=== PATIENT | female | born 1960 | race Caucasian/White ===

== ENCOUNTER 2019-08-27 07:07 | Inpatient (IN) | payer BC, MEDICAID, OTHER ==
[~2019-08-27] VITALS: Ht 165.1 cm; Wt 92.2 kg
[2019-08-27] MEDS ORDERED: ESCI20TA10 PO (07:26)
[2019-08-27] MEDS ORDERED: ATEN50TA41 PO (07:26)
[2019-08-27] MEDS ORDERED: QUET50TA PO (07:26)
--- NOTE | 2019-08-27 07:35 | NUR ---
PT BIB [facility] AFTER INGESTING 365 PILLS OF 81MG ASA AND 40-50 PILLS OF IBUPROFEN, UNKNOWN STRENGTH. PT STATES SHE DOES NOT WANT TO LIVE, IS HAVING DIFFICULTIES WITH LEAVING HER AND TAKING THEIR PET. PT HAS HAD NO EMESIS SINCE INCIDENT. UPON ARRIVAL PT URINATED WITHOUT URINE CUP- PT IS AWARE URINE SAMPLE IS NEEDED AND STATES SHE WILL PROVIDE ONE NEXT TIME SHE NEEDS TO VOID. PT CHANGED INTO GOWN AND 1 BAG OF BELONGINGS PLACED IN SECURE LOCKER. ROOM SECURED. SITTER AT BEDSIDE. PT PROVIDED WITH A WARM BLANKET AND CUP OF WATER. LAB AT BEDSIDE NOW. FOOD ORDERED FOR PT.
[2019-08-27 07:47] LABS: MEAN CORPUSCULAR HEMOGLOBIN 30.5 pg (27.0-34.8); MEAN CORPUSCULAR HGB CONC 33.7 g/dL (32.4-35.8); MEAN CORPUSCULAR VOLUME 90.5 fL (80-100); MEAN PLATELET VOLUME 8.8 fL (7.4-10.4); PLATELET COUNT 247 x10^3/uL (130-400); RED BLOOD COUNT 5.24 x10^6/uL (3.82-5.3); RED CELL DISTRIBUTION WIDTH 13.1 % (9.6-15.2)
[2019-08-27 07:59] LABS: ALBUMIN 4.4 g/dL (3.4-5.0); ANION GAP 4 mmol/L (5-15); CALCIUM 8.7 mg/dL (8.5-10.1); CHLORIDE 122 mmol/L (98-107)
[2019-08-27 08:01] LABS: ALANINE AMINOTRANSFERASE 33 U/L (12-78); ALKALINE PHOSPHATASE 68 U/L (45-117); BILIRUBIN,TOTAL 1.5 mg/dL (0.2-1.0); CREATININE 0.92 mg/dL (0.55-1.02); TOTAL PROTEIN 7.7 g/dL (6.4-8.2)
--- NOTE | 2019-08-27 08:06 | NUR ---
PT PROVIDED WITH BREAKFAST TRAY. URINE COLLECTED. PT RESTING ON GURNEY. NADN. DENIES NEEDS. ROOM SECURE. SITTER AT BEDSIDE.
[2019-08-27 08:07] LABS: SALICYLATE LEVEL 37.3 mg/dL (2.8-20.0)
[2019-08-27 08:14] LABS: HCG UR SG 1.007 (1.003-1.030); MICROSCOPIC NOT IND
[2019-08-27 08:15] LABS: BASOPHILS # (AUTO) 0.06 x10^3/uL (0-0.1); BASOPHILS % (AUTO) 0 % (0-1); EOSINOPHILS # (AUTO) 0.28 x10^3/uL (0-0.4); EOSINOPHILS % (AUTO) 2 % (1-7); LYMPHOCYTES # (AUTO) 2.01 x10^3/uL (1-3.4); LYMPHOCYTES % (AUTO) 14 % (22-44); MD SCAN; MONOCYTES # (AUTO) 0.52 x10^3/uL (0.2-0.8); MONOCYTES % (AUTO) 4 % (2-9); NEUTROPHILS % (AUTO) 81 % (42-75)
[2019-08-27 08:16] LABS: CULTURE INDICATED? NO
[2019-08-27 08:26] LABS: AMPHETAMINE SCREEN, URINE Negative (Negative); BARBITURATE SCREEN, URINE Negative (Negative); BENZODIAZEPINE SCREEN, URINE Negative (Negative); CANNABINOID SCREEN, URINE Negative (Negative); COCAINE SCREEN, URINE Negative (Negative); METHADONE SCREEN, URINE Negative (Negative); OPIATE SCREEN, URINE Negative (Negative)
[2019-08-27] MEDS ORDERED: SODIUM BICARBONATE 1 MEQ/ML, 50ML VIAL IVPush STA (08:39)
--- NOTE | 2019-08-27 08:45 | NUR ---
PT AMBULATORY WITH STEADY GAIT TO RESTROOM AND BACK TO [facility]. RESTING ON [place]. CONNECTED TO MONITOR. AWARE OF POC. VSS. SITTER IN HALLWAY.
--- NOTE | 2019-08-27 08:50 | NUR ---
PT MEDICATED PER EMAR. RESTING ON GURNEY. CONNECTED TO MONITOR. NADN. STUART DRINKING PO CHARCOAL. SITTER IN HALLWAY.
[2019-08-27] MEDS ORDERED: SODIUM BICARB 8.4%,50ML SYR. 150 MEQ in DEXTROSE 5% 1,000 ML IV ONE (09:00)
[2019-08-27] MEDS ORDERED: CHARCOAL/AQUEOUS 25 GM/120 ML PO ONE (09:00)
--- NOTE | 2019-08-27 09:25 | NUR ---
EKG BEING PERFORMED NOW.
--- NOTE | 2019-08-27 09:32 | NUR ---
REPORT GIVEN TO VIRAL BUCKNER IN CCU.
[2019-08-27] MEDS ORDERED: ACETAMINOPHEN 325 MG TABLET PO PRN (10:00)
[2019-08-27] MEDS ORDERED: ONDANSETRON 2MG/ML, 2ML IVPush PRN (10:00)
[2019-08-27] MEDS ORDERED: LABETALOL 5 MG/ML SYR. (IV ONLY) IVPush PRN (10:00)
[2019-08-27 10:30] VITALS: BP 114/57
[2019-08-27 11:53] LABS: MICROSCOPIC NOT IND
[2019-08-27] MEDS ORDERED: OXYcodone 5 MG/5 ML ORAL.SOL UDC PO PRN ×2 (12:00→12:30)
[2019-08-27 12:11] LABS: FIO2 ROOM AIR %
[2019-08-27 12:24] LABS: CALCIUM 8.3 mg/dL (8.5-10.1); CREATININE 1.07 mg/dL (0.55-1.02)
[2019-08-27] MEDS ORDERED: OXYcodone IR 5MG TABLET ONE (12:24)
[2019-08-27 12:34] LABS: FREE T4 (FREE THYROXINE) 1.56 ng/dL (0.76-1.46)
[2019-08-27 12:36] LABS: ANION GAP 5 mmol/L (5-15); CHLORIDE 117 mmol/L (98-107)
[2019-08-27 12:37] LABS: SALICYLATE LEVEL 38.3 mg/dL (2.8-20.0)
[2019-08-27] MEDS: OXYcodone IR 5MG TABLET PO PRN ×2 (12:38→16:34)
[2019-08-27] MEDS ORDERED: POTASSIUM CHLORIDE 20 MEQ TAB.ER.PRT PO ONE (13:00)
[2019-08-27 13:49] LABS: MICROSCOPIC NOT IND
[2019-08-27 14:10] LABS: INTERNATIONAL NORMALIZED RATIO 1.01 (0.93-1.1); PROTHROMBIN TIME 10.6 Seconds (9.6-11.5)
[2019-08-27 15:00] LABS: MICROSCOPIC NOT IND
[2019-08-27] MEDS: SODIUM BICARBONATE 8.4% 150 MEQ in DEXTROSE 5% 1,000 ML IV SCH ×2 (16:03→23:41)
[2019-08-27 16:10] LABS: ANION GAP 3 mmol/L (5-15); CALCIUM 8.4 mg/dL (8.5-10.1); CHLORIDE 116 mmol/L (98-107); CREATININE 1.01 mg/dL (0.55-1.02)
[2019-08-27 16:15] LABS: SALICYLATE LEVEL 34.5 mg/dL (2.8-20.0)
[2019-08-27 16:59] LABS: MICROSCOPIC INDICATED
[2019-08-27] MEDS: LORazepam 2 MG/ML, 1ML IVPush PRN (17:56)
[2019-08-27 20:15] LABS: ANION GAP 4 mmol/L (5-15); CHLORIDE 114 mmol/L (98-107); CREATININE 1.04 mg/dL (0.55-1.02)
[2019-08-27 20:16] LABS: SALICYLATE LEVEL 30.4 mg/dL (2.8-20.0)
[2019-08-27 20:54] LABS: MICROSCOPIC INDICATED
[2019-08-28 00:33] LABS: ANION GAP 4 mmol/L (5-15); CALCIUM 7.9 mg/dL (8.5-10.1); CHLORIDE 111 mmol/L (98-107); CREATININE 0.99 mg/dL (0.55-1.02); SALICYLATE LEVEL 26.2 mg/dL (2.8-20.0)
[2019-08-28 04:22] LABS: BASOPHILS # (AUTO) 0.06 x10^3/uL (0-0.1); BASOPHILS % (AUTO) 1 % (0-1); EOSINOPHILS # (AUTO) 0.25 x10^3/uL (0-0.4); EOSINOPHILS % (AUTO) 3 % (1-7); LYMPHOCYTES # (AUTO) 2.46 x10^3/uL (1-3.4); LYMPHOCYTES % (AUTO) 27 % (22-44); MD NO; MEAN CORPUSCULAR HEMOGLOBIN 30.6 pg (27.0-34.8); MEAN CORPUSCULAR HGB CONC 33.2 g/dL (32.4-35.8); MEAN CORPUSCULAR VOLUME 92.2 fL (80-100); MEAN PLATELET VOLUME 9.4 fL (7.4-10.4); MONOCYTES # (AUTO) 0.55 x10^3/uL (0.2-0.8); MONOCYTES % (AUTO) 6 % (2-9); NEUTROPHILS # (AUTO) 5.95 x10^3/uL (1.8-6.8); NEUTROPHILS % (AUTO) 64 % (42-75); PLATELET COUNT 194 x10^3/uL (130-400); RED BLOOD COUNT 4.65 x10^6/uL (3.82-5.3); RED CELL DISTRIBUTION WIDTH 13.1 % (9.6-15.2)
[2019-08-28 04:35] LABS: ANION GAP 4 mmol/L (5-15); CHLORIDE 111 mmol/L (98-107)
[2019-08-28 04:37] LABS: CREATININE 0.97 mg/dL (0.55-1.02)
[2019-08-28 04:49] LABS: SALICYLATE LEVEL 23.4 mg/dL (2.8-20.0)
[2019-08-28] MEDS ORDERED: POTASSIUM CHLORIDE 20 MEQ TAB.ER.PRT PO ONE (07:30)
[2019-08-28] MEDS: SODIUM BICARBONATE 8.4% 150 MEQ in DEXTROSE 5% 1,000 ML IV SCH (07:34)
[2019-08-28] MEDS: PANTOPRAZOLE 40 MG IV IVPush SCH (07:34)
[2019-08-28] MEDS: OXYcodone IR 5MG TABLET PO PRN (07:49)
[2019-08-28 07:53] LABS: ANION GAP 4 mmol/L (5-15); CALCIUM 8.1 mg/dL (8.5-10.1); CHLORIDE 111 mmol/L (98-107); CREATININE 0.92 mg/dL (0.55-1.02); SALICYLATE LEVEL 16.6 mg/dL (2.8-20.0)
[2019-08-28] MEDS: SODIUM CHLORIDE 0.9% 1,000 ML IV SCH ×2 (08:46→19:07)
[2019-08-28] MEDS ORDERED: FLU VACC QS2019-20 36MOS UP/PF 0.5 ML IM ONE (09:00)
[2019-08-28 11:58] VITALS: BP 121/74
[2019-08-28] MEDS: LORazepam 2 MG/ML, 1ML IVPush PRN ×3 (12:03→22:43)
[2019-08-28 15:18] VITALS: BP 143/79
[2019-08-28 18:52] VITALS: BP 127/74
[2019-08-29 00:35] VITALS: BP 135/72
[2019-08-29] MEDS: LORazepam 2 MG/ML, 1ML IVPush PRN ×3 (03:20→14:00)
[2019-08-29] MEDS: SODIUM CHLORIDE 0.9% 1,000 ML IV SCH ×2 (06:00→16:02)
[2019-08-29] MEDS: PANTOPRAZOLE 40 MG IV IVPush SCH (08:14)
[2019-08-29] MEDS ORDERED: HEPARIN 5,000 UNITS/ML, 1ML SQ SCH (09:00)
[2019-08-29 09:22] VITALS: BP 137/77
[2019-08-29] MEDS: OXYcodone IR 5MG TABLET PO PRN (10:08)
[2019-08-29 15:58] VITALS: BP 146/56
[2019-08-29] MEDS ORDERED: PANT40TA5 PO (16:06)
[2019-08-29] MEDS ORDERED: POTA20TA6 PO (16:06)
[2019-08-30] MEDS ORDERED: PANTOPROZOLE 40MG TABLET PO SCH (06:00)
[2019-08-30] MEDS ORDERED: POTASSIUM CHLORIDE 20 MEQ TAB.ER.PRT PO SCH (08:00)
== END 2019-08-29 17:15 | DRG 812 ==
LOC: ED 08:50 → CCU 09:45 → 4WST 08-28 11:49
PROVIDERS: ADMIT Family Medicine; ATTEND Internal Medicine
DX: T39.312A Poisoning by propionic acid derivatives, intentional self-harm, initial encounter (principal); N17.0 Acute kidney failure with tubular necrosis; E87.4 Mixed disorder of acid-base balance; D72.829 Elevated white blood cell count, unspecified; E87.6 Hypokalemia; S60.812A Abrasion of left wrist, initial encounter; F12.90 Cannabis use, unspecified, uncomplicated; F17.200 Nicotine dependence, unspecified, uncomplicated; F32.9 Major depressive disorder, single episode, unspecified; G47.00 Insomnia, unspecified; I10 Essential (primary) hypertension; Z63.0 Problems in relationship with spouse or partner; X78.9XXA Intentional self-harm by unspecified sharp object, initial encounter; Y93.89 Activity, other specified; Y92.89 Other specified places as the place of occurrence of the external cause; Y99.8 Other external cause status
CPT/HCPCS: 36415; 36600; 71045; 80048; 80053; 80307; 81001; 81003; 81025; 82803; 83735; 84100; 84439; 84443; 85025; 85610; 87081; 90686; 93005; 96374; 96375; 99291; G0378; J1644; J7070; C9113; J2060; J7030

== ENCOUNTER 2020-04-04 06:21 | Emergency (ER) | payer OTHER, MEDICAID ==
[~2020-04-04] VITALS: Ht 165.1 cm; Wt 92.0 kg
[~2020-04-04 06:21] MED LIST: ATEN50TA41 PO; ESCI20TA10 PO; PANT40TA5 PO; POTA20TA6 PO; QUET50TA PO
--- NOTE | 2020-04-04 06:36 | NUR ---
PT ABLE TO STAND TO CHANGE WITH HELP OF , PT CLUNG TO TO SIT DOWN IN BED. PT ON THE VERGE OF TEARS, MOANING IN DISTRESS, STOPS TO ANSWER QUESTIONS IN A QUIET, CALM VOICE. ERP TO BEDSIDE.
[2020-04-04] MEDS ORDERED: HYDROmorphone 1 MG/ML, 1ML INJ IVPush PRN (07:00)
[2020-04-04] MEDS ORDERED: SODIUM CHLORIDE FLUSH 10ML SYR IVF ONE (07:00)
--- NOTE | 2020-04-04 07:01 | NUR ---
REPORT GIVEN TO VIRAL BESS; TO ASSUME FULL CARE.
[2020-04-04 07:09] LABS: BASOPHILS # (AUTO) 0.02 x10^3/uL (0-0.1); BASOPHILS % (AUTO) 0 % (0-1); EOSINOPHILS % (AUTO) 1 % (1-7); LYMPHOCYTES # (AUTO) 0.65 x10^3/uL (1-3.4); LYMPHOCYTES % (AUTO) 6 % (22-44); MD NO; MEAN CORPUSCULAR HEMOGLOBIN 27.3 pg (27.0-34.8); MEAN CORPUSCULAR HGB CONC 33.1 g/dL (32.4-35.8); MEAN CORPUSCULAR VOLUME 82.4 fL (80-100); MEAN PLATELET VOLUME 8.1 fL (7.4-10.4); MONOCYTES # (AUTO) 0.36 x10^3/uL (0.2-0.8); MONOCYTES % (AUTO) 3 % (2-9); NEUTROPHILS # (AUTO) 9.99 x10^3/uL (1.8-6.8); NEUTROPHILS % (AUTO) 90 % (42-75); PLATELET COUNT 254 x10^3/uL (130-400); RED BLOOD COUNT 3.88 x10^6/uL (3.82-5.3); RED CELL DISTRIBUTION WIDTH 15.7 % (9.6-15.2)
[2020-04-04] MEDS ORDERED: HYDROmorphone 1 MG/ML, 1ML INJ ONE (07:09)
[2020-04-04 07:20] LABS: ALBUMIN 2.6 g/dL (3.4-5.0); ANION GAP 8 mmol/L (5-15); CALCIUM 8.7 mg/dL (8.5-10.1); CHLORIDE 103 mmol/L (98-107); CREATININE 0.94 mg/dL (0.55-1.02)
--- NOTE | 2020-04-04 07:24 | NUR ---
PIV INITIATED, PT MEDICATED PER DEC. PT NOW TO MRI
[2020-04-04] MEDS ORDERED: KETOROLAC 30 MG/1 ML IVPush ONE (08:00)
[2020-04-04] MEDS ORDERED: METHOCARBAMOL 1,000 MG in DEXTROSE 5% 100 ML IV ONE (08:00)
[2020-04-04] MEDS ORDERED: KETOROLAC 30 MG/1 ML ONE (08:03)
--- NOTE | 2020-04-04 08:30 | NUR ---
PT WITH LOWER BP 95/58, INITIALLY 130 SBP IN TRIAGE. PT HAD RECIEVED IV DILUADED ERMD NOTIFIED, NO ORDERS RECIEVED AT THIS TIME, WILL CONTINUE TO MONITOR
[2020-04-04 08:56] LABS: MICROSCOPIC INDICATED
[2020-04-04 09:05] VITALS: BP 98/44
== END 2020-04-04 11:16 | disposition home or self-care (01) ==
LOC: ED 06:54
DX: M51.36 Other intervertebral disc degeneration, lumbar region (principal); M47.816 Spondylosis without myelopathy or radiculopathy, lumbar region; M43.16 Spondylolisthesis, lumbar region; N30.00 Acute cystitis without hematuria; M48.07 Spinal stenosis, lumbosacral region; I10 Essential (primary) hypertension
CPT/HCPCS: 36415; 72148; 80048; 81001; 82040; 85025; 87086; 96365; 96375; 99284; J1170; J1885; J2800; 96361

== ENCOUNTER 2020-06-19 12:00 | Inpatient (IN) | payer OTHER, MEDICAID ==
[~2020-06-19] VITALS: Ht 170.2 cm; Wt 69.4 kg
[~2020-06-19 12:00] MED LIST changes: -PANT40TA5 PO; +PANT40TA6 PO
--- NOTE | 2020-06-19 12:14 | NUR ---
[place]. report received from [facility]. pt's neighbor's heard her screaming. per connie, pt is failure to thrive. connie found her on bed. pt lives herself with 2 dogs. pt aox2. unknown baseline. pt has big scar on the middle chest and neighbor stated"she has a heart attack about 5 weeks ago." pt denies any physical complaints. resps even and unlabored. bp/spo2 monitors in place. call light within reach. pt has small scars on bilateral arms and legs. connie stated"probably from two dogs because these dogs are aggressive when we got there."
--- NOTE | 2020-06-19 12:26 | NUR ---
pt's number [phone](per connie)
[2020-06-19] MEDS ORDERED: LORazepam 2 MG/ML, 1ML IVPush ONE ×3 (12:30→20:00)
[2020-06-19] MEDS ORDERED: SODIUM CHLORIDE FLUSH 10ML SYR IVF ONE (12:30)
--- NOTE | 2020-06-19 12:31 | NUR ---
REPORT FROM VIRAL MORIN. LAB AT BEDSIDE FOR DRAW. NAD NOTED AT THIS TIME.
[2020-06-19 12:46] LABS: BASOPHILS # (AUTO) 0.12 x10^3/uL (0-0.1); BASOPHILS % (AUTO) 2 % (0-1); EOSINOPHILS # (AUTO) 0.05 x10^3/uL (0-0.4); EOSINOPHILS % (AUTO) 1 % (1-7); LYMPHOCYTES # (AUTO) 1.77 x10^3/uL (1-3.4); LYMPHOCYTES % (AUTO) 22 % (22-44); MD NO; MEAN CORPUSCULAR HEMOGLOBIN 27.1 pg (27.0-34.8); MEAN CORPUSCULAR VOLUME 84.7 fL (80-100); MEAN PLATELET VOLUME 8.5 fL (7.4-10.4); MONOCYTES % (AUTO) 6 % (2-9); NEUTROPHILS % (AUTO) 70 % (42-75); PLATELET COUNT 351 x10^3/uL (130-400); RED BLOOD COUNT 4.84 x10^6/uL (3.82-5.3); RED CELL DISTRIBUTION WIDTH 17.9 % (9.6-15.2)
--- NOTE | 2020-06-19 12:52 | NUR ---
TASK RN NOTE: PT RETURNED FROM IMAGING. EMT IN TO ASSESS ABILITY TO AMBULATE. MINI CATH READY AT BEDSIDE.
[2020-06-19 12:53] LABS: ALBUMIN 3.4 g/dL (3.4-5.0); ANION GAP 11 mmol/L (5-15); CALCIUM 9.7 mg/dL (8.5-10.1); CHLORIDE 110 mmol/L (98-107)
--- NOTE | 2020-06-19 12:55 | NUR ---
ATTEMPED TO AMBULATE. PT COULD NOT SIT UPRIGHT AND BE STEADY.
[2020-06-19 12:58] LABS: ALANINE AMINOTRANSFERASE 18 U/L (12-78); ALKALINE PHOSPHATASE 106 U/L (45-117); BILIRUBIN,TOTAL 0.8 mg/dL (0.2-1.0); CREATININE 0.66 mg/dL (0.55-1.02); TOTAL PROTEIN 8.1 g/dL (6.4-8.2)
[2020-06-19 13:02] LABS: INTERNATIONAL NORMALIZED RATIO 1.66 (0.93-1.1)
[2020-06-19 13:03] LABS: PROTHROMBIN TIME 17.2 Seconds (9.6-11.5)
--- NOTE | 2020-06-19 13:08 | NUR ---
TASK RN NOTE: PT TOLERATED MINI CATH WELL. UA WALKED TO LAB.
[2020-06-19] MEDS ORDERED: LORazepam 2 MG/ML, 1ML ONE ×2 (13:18→18:56)
--- NOTE | 2020-06-19 13:28 | NUR ---
PIV EST ON L HAND WITH NO COMPLICATIONS. PT MEDICATED PER EMAR. PT TOLERATED WELL.
[2020-06-19 13:31] LABS: AMPHETAMINE SCREEN, URINE Negative (Negative); BARBITURATE SCREEN, URINE Negative (Negative); BENZODIAZEPINE SCREEN, URINE Negative (Negative); CANNABINOID SCREEN, URINE Positive (Negative); COCAINE SCREEN, URINE Negative (Negative); METHADONE SCREEN, URINE Negative (Negative); OPIATE SCREEN, URINE Positive (Negative)
--- NOTE | 2020-06-19 14:10 | NUR ---
pt resting in [facility]. resps even and unlabored. bp/spo2 monitors in place. call light within reach. rails up x2.
--- NOTE | 2020-06-19 14:14 | NUR ---
insulation hoseman at bedside evaluating at this time.
--- NOTE | 2020-06-19 14:38 | NUR ---
pt removed piv herself. pt is confused and agitated. pt is hold per dividend deposit entry clerk. charge en notified.
--- NOTE | 2020-06-19 14:57 | NUR ---
REPORT RECIEVED FROM MIKEL STRATTON. ASSUMED CARE
--- NOTE | 2020-06-19 15:03 | NUR ---
report gave to paco lai.
--- NOTE | 2020-06-19 15:19 | NUR ---
PT RESTING IN [facility]. LIGHTS OFF. EXPLAINED TO THE PT THAT SHE CAN RELAX, ITS SAFE HERE, AND SHE CAN NAP IF SHE WANTS
[2020-06-19] MEDS ORDERED: QUETIAPINE 25MG TABLET ONE (15:21)
[2020-06-19] MEDS: QUETIAPINE 25MG TABLET PO SCH ×2 (15:30→23:44)
[2020-06-19] MEDS ORDERED: ZIPRASIDONE 20 MG INJ IM ONE ×2 (15:35→16:00)
--- NOTE | 2020-06-19 15:46 | NUR ---
PT CONTINOUSLY TRYING TO GET OUT OF BED. PT IS VERY UNSTEADY ON FEET. PT HAS BEEN MEDICATED WITH 20MG GEODON PER MD VERBAL ORDER
--- NOTE | 2020-06-19 16:07 | NUR ---
THROUGHPUT: AUDREY HOOVER FAXED REFERRAL PACKET TO [facility], [facility], [facility], [facility]. FAX CONFIRMATION RECEIVED
--- NOTE | 2020-06-19 16:44 | NUR ---
PT RESTING IN GURNEY. STILL CONTINUES TO HAVE SPORADIC MUSCLE MOVEMENTS. HOWEVER, IS NO LONGER TRYING TO GET OUT OF BED. VSS. SITTER IS OUTSIDE OF ROOM MONITORING PT
[2020-06-19 16:47] LABS: MICROSCOPIC NOT IND
--- NOTE | 2020-06-19 17:01 | NUR ---
Patient denied by [facility].
--- NOTE | 2020-06-19 17:14 | NUR ---
Patient accepted by Marcus from [facility]. Accepting doctor Dr. Boateng. RN from [facility] to call us an get report and at that time they will give us an ETA for transport.
--- NOTE | 2020-06-19 17:37 | NUR ---
TRHOUGHPUT: RECEIVED ACCEPTING MD AT [facility], ELIAN SIGNED, PACKET MADE, CALLED [facility] FOR AUTHORIZATION, CALLED ERIC KOHINOOR OPERATOR TIME AT 1830
--- NOTE | 2020-06-19 18:49 | NUR ---
BREAK RN: CLEAN LINNENS AND GOWN PLACED. PT SKIN FELT VERY HOT, RECTAL TEMP = 101.6, DR TAYLOR INFORMED
[2020-06-19] MEDS ORDERED: ACETAMINOPHEN 650 MG SUPP ONE (18:52)
[2020-06-19] MEDS ORDERED: ACETAMINOPHEN 325 MG TABLET PO ONE (19:00)
[2020-06-19] MEDS ORDERED: HYDROmorphone 2 MG/ML, 1ML IVPush PRN (19:00)
--- NOTE | 2020-06-19 20:21 | NUR ---
PT DENIED FROM [facility] BECAUSE PT IS UNABLE TO PERFORM ADLs. PT NEEDS 1 TO 1 MONITORING. PT WAS TAKEN TO RADIOLOGY AND A LUMBAR PUNCTURE WAS PERFORMED. PT WAS GIVEN 2MG ATIVAN PRIOR TO PROCEDURE AND PT WAS STILL RESTLESS DURING PROCEDURE. HOWEVER, RADIOLOGIST WAS ABLE TO PERFORM PROCEDURE AND COLLECTED THE CSF NEEDED. CSF WALKED TO LAB.
[2020-06-19 20:27] LABS: GLUCOSE, CSF 45 mg/dL (40-80); TOTAL PROTEIN,CSF 86 mg/dL (15-45)
--- NOTE | 2020-06-19 21:52 | NUR ---
PT RESTING IN [facility]. COVID SWAB PERFORMED
[2020-06-19] MEDS ORDERED: CEFTRIAXONE PMX 1GM/50ML 50 ML ONE (21:54)
[2020-06-19] MEDS ORDERED: CEFTRIAXONE PMX 1GM/50ML 50 ML IV SCH (22:00)
--- NOTE | 2020-06-19 22:14 | NUR ---
late note: this tech assisted with bedding and gown change, positioning pt in bed, and took rectal temp per RN
--- NOTE | 2020-06-19 22:19 | NUR ---
VIRAL GOODMAN COLLECTED COVID SAMPLE AND WALKED IT TO LAB
[2020-06-19] MEDS ORDERED: D5%-0.45NACL+KCL 20MEQ 1,000 ML IV SCH (22:38)
[2020-06-19] MEDS ORDERED: ENOXAPARIN 40 MG/0.4 ML SQ SCH (23:00)
[2020-06-19] MEDS ORDERED: LIDODERM 5% PATCH TD PRN (23:00)
[2020-06-19] MEDS ORDERED: MELATONIN 5 MG TABLET PO PRN (23:00)
[2020-06-19] MEDS ORDERED: ENALAPRILAT 1.25 MG/ML, 2ML IVPush PRN (23:00)
[2020-06-19] MEDS ORDERED: DOCUSATE 100 MG CAPSULE PO PRN (23:00)
[2020-06-19 23:12] VITALS: BP 117/76
[2020-06-19] MEDS: AZITHROMYCIN 500 MG in SODIUM CHLORIDE 0.9% 250 ML IV SCH (23:41)
[2020-06-20 01:04] VITALS: BP 108/63
[2020-06-20 06:00] LABS: BASOPHILS # (AUTO) 0.04 x10^3/uL (0-0.1); BASOPHILS % (AUTO) 1 % (0-1); EOSINOPHILS # (AUTO) 0.04 x10^3/uL (0-0.4); EOSINOPHILS % (AUTO) 1 % (1-7); LYMPHOCYTES # (AUTO) 1.82 x10^3/uL (1-3.4); LYMPHOCYTES % (AUTO) 29 % (22-44); MD NO; MEAN CORPUSCULAR HEMOGLOBIN 27.5 pg (27.0-34.8); MEAN CORPUSCULAR HGB CONC 32.3 g/dL (32.4-35.8); MEAN PLATELET VOLUME 8.7 fL (7.4-10.4); MONOCYTES # (AUTO) 0.53 x10^3/uL (0.2-0.8); MONOCYTES % (AUTO) 9 % (2-9); NEUTROPHILS # (AUTO) 3.87 x10^3/uL (1.8-6.8); NEUTROPHILS % (AUTO) 61 % (42-75); PLATELET COUNT 306 x10^3/uL (130-400); RED BLOOD COUNT 4.21 x10^6/uL (3.82-5.3); RED CELL DISTRIBUTION WIDTH 17.8 % (9.6-15.2)
[2020-06-20 06:08] LABS: ANION GAP 9 mmol/L (5-15); CALCIUM 9.6 mg/dL (8.5-10.1); CHLORIDE 115 mmol/L (98-107)
[2020-06-20 06:20] LABS: CREATININE 0.59 mg/dL (0.55-1.02)
[2020-06-20 06:57] VITALS: BP 137/82
[2020-06-20] MEDS: DEXAMETHASONE 4 MG/ML, 1ML IVPush SCH ×3 (08:00→20:34)
[2020-06-20 08:50] LABS: C-REACTIVE PROTEIN, QUANT 5.2 mg/dL (0.02-0.49)
[2020-06-20] MEDS: CHOLECALCIFEROL 5,000u TAB PO SCH (09:20)
[2020-06-20] MEDS: ZINC SULFATE 220 MG CAPSULE PO SCH (09:20)
[2020-06-20] MEDS: POTASSIUM CHLORIDE 20 MEQ TAB.ER.PRT PO SCH ×2 (09:20→16:01)
[2020-06-20] MEDS: QUETIAPINE 25MG TABLET PO SCH ×2 (09:20→20:34)
[2020-06-20] MEDS: ASCORBATE SODIUM 3,000 MG in SODIUM CHLORIDE 0.9% 250 ML IVPB SCH ×3 (09:20→21:25)
[2020-06-20 12:14] VITALS: BP 140/88
[2020-06-20] MEDS ORDERED: CEFTRIAXONE PMX 2GM/50ML 50 ML IV SCH (18:30)
[2020-06-20 20:24] VITALS: BP 141/81
[2020-06-20] MEDS: ENOXAPARIN 60 MG/0.6 ML SQ SCH (20:33)
[2020-06-20] MEDS: ACYCLOVIR 650 MG in SODIUM CHLORIDE 0.9% 100 ML IV SCH (20:33)
[2020-06-20] MEDS: MELATONIN 5 MG TABLET PO SCH (20:35)
[2020-06-20] MEDS: AZITHROMYCIN 500 MG in SODIUM CHLORIDE 0.9% 250 ML IV SCH (21:59)
[2020-06-21 00:01] VITALS: BP 104/71
[2020-06-21] MEDS: ACYCLOVIR 650 MG in SODIUM CHLORIDE 0.9% 100 ML IV SCH ×3 (02:27→22:14)
[2020-06-21] MEDS: DEXAMETHASONE 4 MG/ML, 1ML IVPush SCH ×4 (02:27→23:39)
[2020-06-21] MEDS: ASCORBATE SODIUM 3,000 MG in SODIUM CHLORIDE 0.9% 250 ML IVPB SCH ×3 (02:47→16:00)
[2020-06-21 06:19] LABS: ANION GAP 8 mmol/L (5-15); CALCIUM 9.1 mg/dL (8.5-10.1); CHLORIDE 113 mmol/L (98-107); CREATININE 0.51 mg/dL (0.55-1.02)
[2020-06-21 08:51] VITALS: BP 109/63
[2020-06-21] MEDS: ENOXAPARIN 60 MG/0.6 ML SQ SCH ×2 (08:57→22:12)
[2020-06-21] MEDS: QUETIAPINE 25MG TABLET PO SCH ×2 (08:57→22:17)
[2020-06-21] MEDS: ZINC SULFATE 220 MG CAPSULE PO SCH (08:57)
[2020-06-21] MEDS: POTASSIUM CHLORIDE 20 MEQ TAB.ER.PRT PO SCH (08:57)
[2020-06-21] MEDS: CHOLECALCIFEROL 5,000u TAB PO SCH (08:58)
[2020-06-21] MEDS ORDERED: ERTAPENEM 1 GM in SODIUM CHLORIDE 0.9% 50 ML IV ONE (11:00)
[2020-06-21] MEDS ORDERED: DAPTOMYCIN 600 MG in SODIUM CHLORIDE 0.9% 100 ML IV ONE (11:30)
[2020-06-21 12:47] VITALS: BP 116/61
[2020-06-21 18:37] VITALS: BP 155/83
[2020-06-21] MEDS: ACETAMINOPHEN 325 MG TABLET PO PRN (18:42)
[2020-06-21] MEDS: MELATONIN 5 MG TABLET PO SCH (22:17)
[2020-06-21] MEDS: AZITHROMYCIN 500 MG in SODIUM CHLORIDE 0.9% 250 ML IV SCH (23:39)
[2020-06-22 01:00] VITALS: BP 125/72
[2020-06-22] MEDS: DEXAMETHASONE 4 MG/ML, 1ML IVPush SCH ×4 (05:45→22:26)
[2020-06-22] MEDS: ACYCLOVIR 650 MG in SODIUM CHLORIDE 0.9% 100 ML IV SCH ×3 (05:45→22:25)
[2020-06-22] MEDS: ZINC SULFATE 220 MG CAPSULE PO SCH (08:20)
[2020-06-22] MEDS: CHOLECALCIFEROL 5,000u TAB PO SCH (08:20)
[2020-06-22] MEDS: QUETIAPINE 25MG TABLET PO SCH ×2 (08:20→20:52)
[2020-06-22] MEDS: ENOXAPARIN 60 MG/0.6 ML SQ SCH ×2 (08:21→20:52)
[2020-06-22 09:53] LABS: ANION GAP 9 mmol/L (5-15); CHLORIDE 111 mmol/L (98-107)
[2020-06-22 10:25] VITALS: BP 147/80
[2020-06-22 13:38] VITALS: BP 121/73
[2020-06-22] MEDS: ACETAMINOPHEN 325 MG TABLET PO PRN (14:18)
[2020-06-22 18:33] VITALS: BP 134/81
[2020-06-22] MEDS: MELATONIN 5 MG TABLET PO SCH (20:52)
[2020-06-22] MEDS: AZITHROMYCIN 500 MG in SODIUM CHLORIDE 0.9% 250 ML IV SCH (22:25)
[2020-06-23 01:17] VITALS: BP 132/64
[2020-06-23] MEDS: DEXAMETHASONE 4 MG/ML, 1ML IVPush SCH ×2 (05:10→11:00)
[2020-06-23 05:36] LABS: CHLORIDE 112 mmol/L (98-107)
[2020-06-23 05:41] LABS: ANION GAP 9 mmol/L (5-15); CALCIUM 9.4 mg/dL (8.5-10.1)
[2020-06-23] MEDS: ACYCLOVIR 650 MG in SODIUM CHLORIDE 0.9% 100 ML IV SCH ×2 (05:59→14:00)
[2020-06-23 08:28] VITALS: BP 147/79
[2020-06-23] MEDS: QUETIAPINE 25MG TABLET PO SCH (08:54)
[2020-06-23] MEDS: ZINC SULFATE 220 MG CAPSULE PO SCH (08:54)
[2020-06-23] MEDS: CHOLECALCIFEROL 5,000u TAB PO SCH (08:54)
[2020-06-23] MEDS: ENOXAPARIN 60 MG/0.6 ML SQ SCH (08:54)
[2020-06-23] MEDS ORDERED: PRED20TA PO (09:49)
[2020-06-23] MEDS ORDERED: CEFD300C37 PO (09:51)
[2020-06-23 12:51] VITALS: BP 151/83
== END 2020-06-23 15:42 | disposition home health service (06) | DRG 871 ==
LOC: ED 13:12 → EDIP 19:23 → 4EST 22:30 → 3N 06-21 20:32
PROVIDERS: ADMIT Family Medicine; ATTEND Family Medicine
PROC: 009U3ZX Drainage of Spinal Canal, Percutaneous Approach, Diagnostic (ICD-10-PCS; principal; 2020-06-19)
PROC: 0T9B70Z Drainage of Bladder with Drainage Device, Via Natural or Artificial Opening (ICD-10-PCS; 2020-06-19)
DX: A41.9 Sepsis, unspecified organism (principal); G93.41 Metabolic encephalopathy; J15.9 Unspecified bacterial pneumonia; J96.01 Acute respiratory failure with hypoxia; R65.21 Severe sepsis with septic shock; F23 Brief psychotic disorder; E87.6 Hypokalemia; F12.90 Cannabis use, unspecified, uncomplicated; F41.9 Anxiety disorder, unspecified; F17.210 Nicotine dependence, cigarettes, uncomplicated; F32.9 Major depressive disorder, single episode, unspecified; I10 Essential (primary) hypertension; I25.2 Old myocardial infarction; Z20.828 Contact with and (suspected) exposure to other viral communicable diseases; Z79.899 Other long term (current) drug therapy; W18.39XA Other fall on same level, initial encounter; Y93.89 Activity, other specified; Y92.89 Other specified places as the place of occurrence of the external cause; Y99.8 Other external cause status
CPT/HCPCS: 36415; 62328; 70450; 71045; 80048; 80053; 80307; 81003; 82550; 82945; 83605; 83615; 83735; 84100; 84157; 84443; 85025; 85379; 85610; 86140; 87040; 87070; 87205; 87252; 87255; 87529; 87635; 89051; G0378; J0133; J0456; J0696; J0878; J1100; J1335; J1650; J3486; J2060; J3480; J7050